=== PATIENT | male | born 1945 | race Caucasian/White ===

== ENCOUNTER 2017-07-16 11:26 | Emergency (ER) | payer OTHER ==
--- NOTE | 2017-07-16 11:42 | EDM.PDOC ---
ED HPI GENERAL MEDICAL PROBLEM - General Chief Complaint: Chest Pain Stated Complaint: [facility] Time Seen by Provider: 07/16/17 11:36 Source of Information: Reports: Patient History Limitations: Reports: No Limitations - History of Present Illness INITIAL COMMENTS - FREE TEXT/NARRATIVE: 72-year-old male sent across from the [place] clinic for evaluation of bilateral upper anterior chest discomfort that he's been experiencing for the last 2 days. Does not feel any more short of breath than normal. He states he always has a bit of a cough and is bringing up a dark yellow sputum first thing in the morning. No hemoptysis. He appreciates increased abdominal distention with belching and passing flatus per rectum last day or so as well. Has been able to eat normally up until today did not eat any breakfast. Denies pain rating to to his back. States that his bowel function is been normal except that he's gone 3 times so far today with no blood noted. Onset: Gradual Onset Date: 07/14/17 Duration: Day(s):, Waxing/Waning (Very mild discomfort) Location: Reports: Chest ( rated as 1 or 2 out of 10.bilateral upper anterior chest. ) Quality: Reports: Ache, Dull. Denies: Burning, Pressure, Same as Previous Episode, Sharp, Stabbing, Throbbing, Other Severity: Mild Improves with: Reports: None, Other (Does not worsen with activity. Perhaps relieved a little bit by burping.) Worsens with: Reports: None Context: Denies: Activity, Exercise, Lifting, Sick Contact, Trauma, Other Associated Symptoms: Reports: cough w sputum (Cosopt a little bit of), Loss of Appetite, Other (Abdominal distention with). Denies: Fever/Chills ( yellowish sputum every day. No worse than normal.), Headaches, Malaise, Nausea/Vomiting ( Has not eaten yet today. Usually has couple pieces of toast in the morning.), Rash, Seizure, Shortness of Breath, Syncope Treatments DRAWER IN JACQUARD LOOM: Reports: Other (see below) (None.) Chest Pain Score (Numeric/FACES): 2 - Related Data Allergies Allergy/AdvReac Type Severity Reaction Status Date / Time No Known Allergies Allergy Verified 07/16/17 11:37 Home Meds: Home Meds Diltiazem [Cardizem CD] 120 mg PO DAILY 07/16/17 [History] Finasteride 5 mg PO DAILY 07/16/17 [History] Hydrochlorothiazide 12.5 mg PO DAILY 07/16/17 [History] Losartan [Cozaar] 100 mg PO DAILY 07/16/17 [History] Omeprazole Magnesium [Prilosec Otc] 20 mg PO DAILY #30 tablet. 07/16/17 [Rx] Rosuvastatin [Crestor] 10 mg PO DAILY 07/16/17 [History] Tamsulosin [Flomax] 0.4 mg PO BEDTIME 07/16/17 [History] glipiZIDE [Glucotrol] 20 mg PO BID 07/16/17 [History] metFORMIN [Glucophage XR] 100 mg PO BID 07/16/17 [History] Past Medical History Respiratory History: Reports: COPD (Mild COPD.) Genitourinary History: Reports: BPH (Slow urinary stream with nocturia 3.) Musculoskeletal History: Reports: Osteoarthritis (Primarily in his hips knees and back.) Social & Family History - Living Situation & Occupation Occupation: Retired ED ROS GENERAL - Review of Systems Review Of Systems: See Below Constitutional: Reports: Decreased Appetite (Today.). Denies: Fever, Chills, Malaise, Weakness, Fatigue, Diaphoresis, Weight Loss HEENT: Reports: No Symptoms Respiratory: Reports: Shortness of Breath, Cough (No worse than normal but has a chronic cough uses a cough drop in the mornings to help loosen up the sputum.) , Sputum (If it is brought up and is usually a darker yellow in color.). Denies : Wheezing (On exertion), Pleuritic Chest Pain Cardiovascular: Reports: Chest Pain (See history of present illness), Blood Pressure Problem, Dyspnea on Exertion. Denies: Claudication, Edema, Lightheadedness, Orthopnea (Chronic hypertension), Palpitations (Chronically) Endocrine: Reports: No Symptoms GI/Abdominal: Reports: Distension (Abdomen is more distended this morning and with a lot of extra burping belching and passage of flatus.). Denies: Abdominal Pain, Anorexia, Black Stool, Bloody Stool, Constipation, Diarrhea, Decreased Appetite, Difficulty Swallowing, Nausea, Stool Incontinence, Vomiting : Reports: No Symptoms Musculoskeletal: Reports: Joint Pain (Knees hips and low back at times occasionally his neck as well) Skin: Reports: No Symptoms Neurological: Reports: No Symptoms ED EXAM, GENERAL - Physical Exam Exam: See Below Exam Limited By: No Limitations General Appearance: Alert, WD/WN, No Apparent Distress Eye Exam: Bilateral Eye: Normal Inspection Throat/Mouth: Normal Inspection, Normal Lips, Normal Oropharynx Head: Atraumatic, Normocephalic Neck: Normal Inspection, Supple, Non-Tender, Full Range of Motion. No: Lymphadenopathy (L), Lymphadenopathy (R) Respiratory/Chest: No Respiratory Distress, Lungs Clear, Normal Breath Sounds, No Accessory Muscle Use, Chest Non-Tender. No: Crackles, Rales, Rhonchi, Wheezing Cardiovascular: Normal Peripheral Pulses, Regular Rate, Rhythm, No Edema, No Gallop, No Murmur, No Rub Peripheral Pulses: 1+: Posterior Tibial (L), Posterior Tibial (R), Dorsalis Pedis (L), Dorsalis Pedis (R) GI/Abdominal: Distended (The abdomen is grossly distended and tympanitic to percussion in all 4 quadrants. It is not painful.), Abnormal Bowel Sounds ( Mildly hyperactive bowel sounds throughout.). No: Guarding, Rigid, Rebound, Tender Back Exam: Normal Inspection, Full Range of Motion. No: CVA Tenderness (L), CVA Tenderness (R) Extremities: Normal Inspection, Normal Range of Motion, Non-Tender, No Pedal Edema Neurological: Oriented, CN II-XII Intact, Normal Cognition, Normal Gait Psychiatric: Normal Affect, Normal Mood Skin Exam: Warm, Dry, Intact, Normal Color, No Rash EKG INTERPRETATION EKG Date: 07/16/17 Time: 11:40 Rhythm: NSR Rate (Beats/Min): 78 [place]: LAD-Left [place] Deviation (-54) P-Wave: Present QRS: Other (Initial poor R-wave progression with late transition. 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 Course - Vital Signs Last Recorded V/S: Last Vital Signs Temp 36.4 C 07/16/17 11:30 Pulse 85 07/16/17 11:30 Resp 18 07/16/17 11:30 BP 172/97 H 07/16/17 11:30 Pulse Ox 98 07/16/17 11:30 - Orders/Labs/Meds Orders: Active Orders 24 hr Category Date Time Status EKG Documentation Completion [RC] STAT Care 07/16/17 11:42 Active Labs: Laboratory Tests 07/16/17 07/16/17 07/16/17 Range/Units 12:01 12:01 12:01 WBC 6.61 (4.23-9.07) K/mm3 RBC 4.64 (4.63-6.08) M/mm3 Hgb 13.8 (13.7-17.5) gm/L Hct 39.4 L (40.1-51.0) % MCV 84.9 (79.0-92.2) fl MCH 29.7 (25.7-32.2) pg MCHC 35.0 (32.2-35.5) g/dl RDW Std Deviation 40.1 (35.1-43.9) fL Plt Count 200 (163-337) K/mm3 MPV 9.1 L (9.4-12.3) fl Neutrophils % (Manual) 63 H (40-60) % Band Neutrophils % 0 (0-10) % Lymphocytes % (Manual) 31 (20-40) % Atypical Lymphs % 0 % Monocytes % (Manual) 3 (2-10) % Eosinophils % (Manual) 3 (0.8-7.0) % Basophils % (Manual) 0 L (0.2-1.2) Platelet Estimate Adequate RBC Morph Comment Normal Sodium 140 (136-145) mEq/L Potassium 3.8 (3.5-5.1) mEq/L Chloride 105 (98-107) mEq/L Carbon Dioxide 22 (21-32) mEq/L Anion Gap 16.8 H (5-15) BUN 20 H (7-18) mg/dL Creatinine 1.3 (0.7-1.3) mg/dL Est Cr Clr Drug Dosing 55.51 mL/min Estimated GFR (MDRD) 54 (>60) mL/min BUN/Creatinine Ratio 15.4 (14-18) Glucose 186 H (83-115) mg/dL Calcium 9.5 (8.5-10.1) mg/dL Total Bilirubin 1.1 H (0.2-1.0) mg/dL AST 19 (15-37) U/L ALT 27 (16-63) U/L Alkaline Phosphatase 45 L (46-116) U/L CK-MB (CK-2) 1.1 (0-3.6) ng/ml Troponin I < 0.017 (0.00-0.056) ng/mL C-Reactive Protein < 0.2 (<1.0) mg/dL NT-Pro-B Natriuret Pep 66 (0-125) pg/mL Total Protein 7.2 (6.4-8.2) g/dl Albumin 3.8 (3.4-5.0) g/dl Globulin 3.4 gm/dL Albumin/Globulin Ratio 1.1 (1-2) Amylase 78 (20-160) U/L - Radiology Interpretation Free Text/Narrative:: 72-year-old male [facility] he presented to the clinic this morning complaining of bilateral upper anterior chest discomfort for the last couple of days. His ECG apparently was abnormal only for GERD him to the ED. He states otherwise he feels pretty good. He states he is no more short of breath than normal. Sputum is production is no worse than normal. Has no chest wall tenderness. Described as a discomfort. Of note his abdomen is distended and grossly intubated percussion in all 4 quadrants and maybe referring some of the pain up into his anterior chest from diaphragmatic irritation. He is burping and belching and passing flatus to get rid of extra gas. The abdomen itself otherwise it feels benign. He's had 3 bowel movements so far today. Chest exam is within normal limits. ECG shows evidence of an old inferior wall myocardial infarction with no acute ischemic changes. He has poor initial R wave progression with late transition. There is a left axis axis deviation of -54. Plan chest x-ray routine labs to be performed including cardiac markers. He is hypertensive at the time of exam. O2 sats are 98% on room air - Re-Assessments/Exams Free Text/Narrative Re-Assessment/Exam: 07/16/17 12:27 chest x-ray reveals old appearing lungs. There is no obvious infiltrates in either lung. Silhouette is within normal limits. The abdomen shows air distending both large and small bowel with no signs of obstruction. There does travel down into the rectal vault. 07/16/17 12:59 Labs reveal a normal white count at 6.61 with a normal differential 63% neutrophils and no bands. Hemoglobin is 13.8 with hematocrit of 39.4. Platelet count is 200,000. Sodium 140 potassium 3.8. Toward 105 bicarbonate 22. Anion gap is mildly elevated at 16.8. BUNs 20. Creatinine is 1.3. Glucose is elevated at 186. Calcium 9.5 bilirubin 1.1 alkaline phosphatase is low at 45. Troponin is less than 0.017. C-reactive protein is less than 0.2. Amylase is 78. Therefore his labs are basically normal. I suspect his anterior chest discomfort it may be referred from his abdominal distention. By history also having increasing problems with GERD as of late. I'm going to suggest that he go on Prilosec 20 mg once daily for at least a month's trial to see if it alleviates some of this discomfort. I'm strongly suspicious that he may have sleep apnea syndrome to present to the ED with such a large amount of air in his small and large bowel that would've accumulated overnight with . difficulty breathing. He doesn't feel distended.. I will suggest to the [place] clinic that they arrange a sleep study for him. 07/16/17 13:56 and mentioned to the patient about pursuing a sleep study but he' s not all that keen at this time as he doesn't think he would be able to tolerate a CPAP mask. I will therefore leave that up to his discretion. Departure - Departure Time of Disposition: 13:36 Disposition: Home, Self-Care 01 Condition: Fair Clinical Impression: Non-cardiac chest pain, Gastroesophageal reflux disease Prescriptions: Omeprazole Magnesium [Prilosec Otc] 20 mg PO DAILY #30 tablet. Instructions: Food Choices for Gastroesophageal Reflux Disease, Adult, Easy-to- Read, Nonspecific Chest Pain, [id number], Gastroesophageal Reflux Disease, Adult, [id number] Referrals: Sanam Russo DO [Primary Care Provider] - Forms: ED Department Discharge Additional Instructions: Evaluation the emergency room today in regards to diffuse upper anterior chest discomfort for the last couple of days. Recommended by the [place] [facility] that you get checked out to make sure that there was no evidence of heart related illness. Therefore complete cardiac workup was completed in the ED and showed no changes to suggest heart related illness at this time. Did identify a large amount of gas distending the small and large bowel in your abdomen and I am concerned that you may be suffering sleep apnea during the night which means you 're struggling to breathe and swallow good deal of air and he would not be aware of this. I would suggest that a sleep study be carried out through the [place] clinic. Thirdly you identified that you're using more Tums and Rolaids as of late to try and control reflux disease. The reflux disease involves the inflammation of the lower part of the food pipe and may refer some of the pain or discomfort up into her anterior chest. I would therefore suggest use of Prilosec medication 20 mg once daily at bedtime for the next month to see if this helps alleviate some of this discomfort. [facility] 2 weeks to see how you're doing. - My Orders Last 24 Hours: My Active Orders 07/16/17 11:42 EKG Documentation Completion [RC] STAT - Assessment/Plan Last 24 Hours: My Active Orders 07/16/17 11:42 EKG Documentation Completion [RC] STAT
--- NOTE | 2017-07-16 12:50 | CR ---
Abdomen: Supine view of the abdomen was obtained. Scattered gas noted within the colon and small bowel. No bowel dilatation is seen with no findings of bowel obstruction. Calcifications are seen within the pelvis compatible with phleboliths. Degenerative change is seen within the spine. Impression: 1. Incidental findings. Diagnostic code #2
--- NOTE | 2017-07-16 12:50 | CR ---
Chest: Frontal view of the chest was obtained. Comparison: No previous study. Heart size is normal. Mild tortuosity of the thoracic aorta is seen. Minimal linear density is noted within the left lung base compatible with small scar or minimal atelectasis. Lungs otherwise are clear. Degenerative change is seen within the lower thoracic spine. Mild scoliosis is noted. Several old healed right-sided rib fractures are seen. Impression: 1. Incidental findings. Nothing acute is seen. Diagnostic code #2
== END 2017-07-16 13:55 | disposition home or self-care (01) ==
LOC: JD.ED 11:26
DX: K21.9 Gastro-esophageal reflux disease without esophagitis (principal); Z79.899 Other long term (current) drug therapy; Z79.84 Long term (current) use of oral hypoglycemic drugs
CPT/HCPCS: 36415; 71010; 71010-26; 74000; 74000-26; 80053; 82150; 82553; 83880; 84484; 85025; 86140; 93005; 93010; 99283-25; 99285-25

== ENCOUNTER 2021-08-30 09:58 | Emergency (ER) | payer OTHER | END 2021-08-30 11:54 | disposition home or self-care (01) | LOC: JD.ED 09:58 | DX: T20.20XA Burn of second degree of head, face, and neck, unspecified site, initial encounter (principal); E78.00 Pure hypercholesterolemia, unspecified; I10 Essential (primary) hypertension; J44.9 Chronic obstructive pulmonary disease, unspecified; N40.0 Benign prostatic hyperplasia without lower urinary tract symptoms; Z79.899 Other long term (current) drug therapy; X19.XXXA Contact with other heat and hot substances, initial encounter; Y99.0 Civilian activity done for income or pay | CPT/HCPCS: 99283 ==

== ENCOUNTER 2023-12-17 19:00 | Inpatient (IN) | payer OTHER ==
[2023-12-17] MEDS ORDERED: Sodium Chloride 0.9% 10 ML Syringe FLUSH PRN (19:34)
[2023-12-17 19:43] LABS: BASOPHILS PERCENT AUTO 0.1 % (0.0-1.0); EOSINOPHILS PERCENT AUTO 0.3 % (0.0-6.0); HEMATOCRIT 39.7 % (42.0-52.0); HEMOGLOBIN 13.5 gm/dl (14.0-18.0); IMMATURE GRAN ABSOLUTE AUTO 0.02 K/mm3 (0.00-0.05); IMMATURE GRAN PERCENT AUTO 0.3 % (0.0-0.4); LYMPHOCYTES ABSOLUTE AUTO 0.3 K/mm3 (1.0-4.8); LYMPHOCYTES PERCENT AUTO 4.4 % (24.0-44.0); MEAN CORPUSCULAR HEMOGLOBIN 29.3 pg (28.0-32.0); MEAN CORPUSCULAR VOLUME 86.1 fl (83.0-99.0); MEAN PLATELET VOLUME 8.8 fl (9.4-12.4); MONOCYTES ABSOLUTE AUTO 0.2 K/mm3 (0.0-0.8); MONOCYTES PERCENT AUTO 2.1 % (0.0-8.0); NEUTROPHILS ABSOLUTE AUTO 7.1 K/mm3 (1.8-7.7); NEUTROPHILS PERCENT AUTO 92.8 % (41.0-71.0); PLATELET COUNT,PLT 196 K/mm3 (150-400); RED BLOOD CELL COUNT 4.61 M/mm3 (4.52-5.90); WHITE BLOOD CELL COUNT,WBC 7.68 K/mm3 (3.9-11.3)
[2023-12-17] MEDS ORDERED: Sodium Chloride 0.9% 1,000 ML IV SCH (20:00)
[2023-12-17 20:01] LABS: ALBUMIN 3.6 g/dl (3.4-5.0); BILIRUBIN TOTAL 1.8 mg/dL (0.2-1.0); C-REACTIVE PROTEIN 0.14 mg/dL (<0.30); EST CRCL DRUG DOSING (CG) 33.95 mL/min; MAGNESIUM 1.3 mg/dL (1.8-2.4); PROTEIN TOTAL,TP 7.1 g/dl (6.4-8.2)
[2023-12-17 20:03] LABS: SLIDE REVIEW ABNORMAL SMEAR
[2023-12-17 20:04] LABS: LACTIC ACID 1.5 mmol/L (0.4-2.0)
[2023-12-17] MEDS ORDERED: Ondansetron 4 MG/2 ML SDV IVPUSH PRN (21:43)
[2023-12-17] MEDS ORDERED: HYDROmorphone 0.5 MG/0.5 ML Syringe IVPUSH PRN (21:44)
[2023-12-17] MEDS: Magnesium Sulfate/Water 2 GM in Premix Bag 1 BAG IV ONE (22:42)
[2023-12-18] MEDS: Sodium Chloride 0.9% 1,000 ML IV SCH ×2 (00:58→10:39)
[2023-12-18 01:17] LABS: APPEARANCE,URINE CLEAR (Clear); BILIRUBIN,URINE NEGATIVE (Negative); COLOR,URINE YELLOW (Yellow); GLUCOSE,URINE NEGATIVE (Negative); KETONES,URINE NEGATIVE (Negative); LEUKOCYTE ESTERASE,URINE NEGATIVE (Negative); NITRITE,URINE NEGATIVE (Negative); OCCULT BLOOD,URINE TRACE-LYSED (Negative); PH,URINE 6.5 (5.0-8.0); PROTEIN,URINE 2+ (Negative); UROBILINOGEN,URINE 0.2 (0.2-1.0)
[2023-12-18 02:04] LABS: BACTERIA,URINE RARE /hpf (FEW); EPITHELIAL CELLS,URINE 0-5 /hpf (0-5); RBC,URINE NOT SEEN /hpf (0-5); WBC,URINE 0-5 /hpf (0-5)
[2023-12-18 02:05] LABS: MUCUS,URINE RARE /hpf (FEW)
[2023-12-18 06:14] LABS: BASOPHILS PERCENT AUTO 0.2 % (0.0-1.0); EOSINOPHILS PERCENT AUTO 0.2 % (0.0-6.0); HEMATOCRIT 37.2 % (42.0-52.0); HEMOGLOBIN 12.3 gm/dl (14.0-18.0); IMMATURE GRAN ABSOLUTE AUTO 0.04 K/mm3 (0.00-0.05); IMMATURE GRAN PERCENT AUTO 0.4 % (0.0-0.4); LYMPHOCYTES ABSOLUTE AUTO 0.7 K/mm3 (1.0-4.8); LYMPHOCYTES PERCENT AUTO 6.2 % (24.0-44.0); MEAN CORPUSCULAR HEMOGLOBIN 28.7 pg (28.0-32.0); MEAN CORPUSCULAR HGB CONC 33.1 g/dl (32.0-36.0); MEAN CORPUSCULAR VOLUME 86.9 fl (83.0-99.0); MEAN PLATELET VOLUME 8.9 fl (9.4-12.4); MONOCYTES ABSOLUTE AUTO 0.6 K/mm3 (0.0-0.8); MONOCYTES PERCENT AUTO 5.2 % (0.0-8.0); NEUTROPHILS ABSOLUTE AUTO 9.4 K/mm3 (1.8-7.7); NEUTROPHILS PERCENT AUTO 87.8 % (41.0-71.0); PLATELET COUNT,PLT 175 K/mm3 (150-400); RED BLOOD CELL COUNT 4.28 M/mm3 (4.52-5.90); WHITE BLOOD CELL COUNT,WBC 10.73 K/mm3 (3.9-11.3)
[2023-12-18 07:08] LABS: A/G RATIO 0.9 (1-2); ALBUMIN 3.1 g/dl (3.4-5.0); ANION GAP 9.6 (5-15); BILIRUBIN TOTAL 2.3 mg/dL (0.2-1.0); BUN/CREATININE RATIO 11.1 (14-18); CALCIUM 9.4 mg/dL (8.5-10.1); CREATININE 1.8 mg/dL (0.7-1.3); EST CRCL DRUG DOSING (CG) 36.6 mL/min; POTASSIUM,K 4.6 mEq/L (3.5-5.1); PROTEIN TOTAL,TP 6.4 g/dl (6.4-8.2)
[2023-12-18] MEDS: Diltiazem 120 MG Cap.CD PO SCH (09:23)
[2023-12-18] MEDS: Pantoprazole 40 MG Tab.CR PO SCH (09:23)
[2023-12-18] MEDS: Famotidine 10 MG Tab PO SCH (09:23)
[2023-12-18] MEDS: Finasteride 5 MG Tab PO SCH (09:23)
[2023-12-18] MEDS: Aspirin 325 MG Tab.EC PO SCH (09:24)
[2023-12-18] MEDS: Insulin Glargine,Human Rec. Analog 100 Units/ML 3 ML Pen SUBCUT SCH (09:24)
[2023-12-18 11:08] LABS: HEMOGLOBIN A1C 8.1 %
[2023-12-18 11:12] LABS: CHOLESTEROL HDL 56 mg/dL (40-59); CHOLESTEROL LDL DIRECT 50 mg/dL (<100); CHOLESTEROL TOTAL 107 mg/dL (<200); TRIGLYCERIDES 37 mg/dL (<150)
[2023-12-18] MEDS: Sodium Chloride 0.9% 10 ML Syringe FLUSH SCH (11:31)
[2023-12-18] MEDS: Gadobenate Dimeglumine 529 MG/ML 20 ML SDV IVPUSH ONE (11:31)
[2023-12-18] MEDS ORDERED: Albuterol/Ipratropium 3.0-0.5 MG/3 ML Neb Soln NEB PRN (12:06)
[2023-12-18 12:28] LABS: HEPATITIS C AB NON-REACTIVE (Non-React)
[2023-12-18] MEDS: Insulin Lispro 100 Unit/ML 3 ML KwikPen SUBCUT SCH ×2 (13:33→13:38)
[2023-12-18] MEDS: Heparin Sodium 5,000 Units/ML Vial SUBCUT SCH (13:38)
[2023-12-18] MEDS: Tamsulosin 0.4 MG Cap.ER PO SCH (20:43)
[2023-12-19 00:50] LABS: AMORPHOUS SEDIMENT,URINE FEW /hpf (NOT SEEN)
[2023-12-19 04:37] LABS: BASOPHILS PERCENT AUTO 0.2 % (0.0-1.0); EOSINOPHILS ABSOLUTE AUTO 0.1 K/mm3 (0.0-0.4); EOSINOPHILS PERCENT AUTO 0.8 % (0.0-6.0); HEMOGLOBIN 10.9 gm/dl (14.0-18.0); IMMATURE GRAN ABSOLUTE AUTO 0.03 K/mm3 (0.00-0.05); IMMATURE GRAN PERCENT AUTO 0.4 % (0.0-0.4); LYMPHOCYTES ABSOLUTE AUTO 0.8 K/mm3 (1.0-4.8); LYMPHOCYTES PERCENT AUTO 8.8 % (24.0-44.0); MEAN CORPUSCULAR HEMOGLOBIN 29.1 pg (28.0-32.0); MEAN PLATELET VOLUME 8.7 fl (9.4-12.4); MONOCYTES ABSOLUTE AUTO 0.6 K/mm3 (0.0-0.8); MONOCYTES PERCENT AUTO 6.8 % (0.0-8.0); NEUTROPHILS ABSOLUTE AUTO 7.1 K/mm3 (1.8-7.7); PLATELET COUNT,PLT 140 K/mm3 (150-400); RED BLOOD CELL COUNT 3.75 M/mm3 (4.52-5.90)
[2023-12-19 05:09] LABS: A/G RATIO 0.9 (1-2); ALBUMIN 2.6 g/dl (3.4-5.0); ANION GAP 11.9 (5-15); BILIRUBIN DIRECT 0.7 mg/dl (0.0-0.2); BILIRUBIN TOTAL 3.2 mg/dL (0.2-1.0); BUN/CREATININE RATIO 10.6 (14-18); CALCIUM 8.3 mg/dL (8.5-10.1); CREATININE 1.8 mg/dL (0.7-1.3); EST CRCL DRUG DOSING (CG) 36.6 mL/min; MAGNESIUM 1.5 mg/dL (1.8-2.4); POTASSIUM,K 3.9 mEq/L (3.5-5.1); PROTEIN TOTAL,TP 5.6 g/dl (6.4-8.2)
[2023-12-19] MEDS ORDERED: Magnesium Sulfate/Water 2 GM in Premix Bag 1 BAG IV SCH (08:30)
[2023-12-19] MEDS: Magnesium Sulfate/Water 2 GM in Premix Bag 1 BAG IV ONE (09:09)
[2023-12-19 09:23] LABS: LACTIC ACID 0.9 mmol/L (0.4-2.0)
[2023-12-19] MEDS: Iopamidol 755 Mg/ML 100 ML Bottle IVPUSH ONE (10:02)
[2023-12-19] MEDS: Sodium Chloride 0.9% 10 ML Syringe FLUSH PRN (10:02)
[2023-12-19] MEDS: Sodium Chloride 0.9% 100 ML IV SCH (10:03)
[2023-12-19] MEDS: Sodium Chloride 0.9% 1,000 ML IV SCH (13:36)
[2023-12-19] MEDS: metroNIDAZOLE/Normal Saline 500 MG in Premix Bag 1 BAG IV SCH (13:37)
[2023-12-19] MEDS: cefTRIAXone 2 GM in Sodium Chloride 0.9% 100 ML IV SCH (14:40)
[2023-12-19] MEDS: Insulin Lispro 100 Unit/ML 3 ML KwikPen SUBCUT SCH (17:49)
[2023-12-20 05:05] LABS: BASOPHILS PERCENT AUTO 0.3 % (0.0-1.0); EOSINOPHILS ABSOLUTE AUTO 0.1 K/mm3 (0.0-0.4); EOSINOPHILS PERCENT AUTO 1.5 % (0.0-6.0); HEMATOCRIT 30.5 % (42.0-52.0); HEMOGLOBIN 10.1 gm/dl (14.0-18.0); IMMATURE GRAN ABSOLUTE AUTO 0.02 K/mm3 (0.00-0.05); IMMATURE GRAN PERCENT AUTO 0.3 % (0.0-0.4); LYMPHOCYTES ABSOLUTE AUTO 0.6 K/mm3 (1.0-4.8); LYMPHOCYTES PERCENT AUTO 8.6 % (24.0-44.0); MEAN CORPUSCULAR HEMOGLOBIN 28.9 pg (28.0-32.0); MEAN CORPUSCULAR HGB CONC 33.1 g/dl (32.0-36.0); MEAN CORPUSCULAR VOLUME 87.1 fl (83.0-99.0); MEAN PLATELET VOLUME 9.4 fl (9.4-12.4); MONOCYTES ABSOLUTE AUTO 0.7 K/mm3 (0.0-0.8); NEUTROPHILS ABSOLUTE AUTO 5.3 K/mm3 (1.8-7.7); NEUTROPHILS PERCENT AUTO 79.3 % (41.0-71.0); PLATELET COUNT,PLT 132 K/mm3 (150-400); WHITE BLOOD CELL COUNT,WBC 6.71 K/mm3 (3.9-11.3)
[2023-12-20 05:44] LABS: A/G RATIO 0.8 (1-2); ALBUMIN 2.5 g/dl (3.4-5.0); ANION GAP 15.1 (5-15); BILIRUBIN TOTAL 1.9 mg/dL (0.2-1.0); BUN/CREATININE RATIO 11.9 (14-18); CREATININE 1.6 mg/dL (0.7-1.3); EST CRCL DRUG DOSING (CG) 41.18 mL/min; MAGNESIUM 1.9 mg/dL (1.8-2.4); POTASSIUM,K 4.1 mEq/L (3.5-5.1); PROTEIN TOTAL,TP 5.8 g/dl (6.4-8.2)
[2023-12-20 13:47] LABS: HEP B SURFACE AG Negative (Negative)
== END 2023-12-20 13:41 | disposition home or self-care (01) | DRG 439 ==
LOC: JD.ED 19:00 → JD.MS 21:41
PROVIDERS: ADMIT Internal Medicine; ATTEND Internal Medicine
DX: K85.30 Drug induced acute pancreatitis without necrosis or infection (principal); I48.92 Unspecified atrial flutter; N17.9 Acute kidney failure, unspecified; E78.00 Pure hypercholesterolemia, unspecified; I10 Essential (primary) hypertension; J44.9 Chronic obstructive pulmonary disease, unspecified; N40.0 Benign prostatic hyperplasia without lower urinary tract symptoms; M19.90 Unspecified osteoarthritis, unspecified site; Z96.659 Presence of unspecified artificial knee joint; I48.91 Unspecified atrial fibrillation; R74.01 Elevation of levels of liver transaminase levels; E80.6 Other disorders of bilirubin metabolism; E11.69 Type 2 diabetes mellitus with other specified complication; K21.9 Gastro-esophageal reflux disease without esophagitis; E83.42 Hypomagnesemia; R93.429 Abnormal radiologic findings on diagnostic imaging of unspecified kidney; K29.80 Duodenitis without bleeding; T38.3X5A Adverse effect of insulin and oral hypoglycemic [antidiabetic] drugs, initial encounter; Z79.899 Other long term (current) drug therapy; Z79.84 Long term (current) use of oral hypoglycemic drugs
CPT/HCPCS: 36415; 74177; 74177-26; 74183; 74183-26; 76705; 76705-26; 80053; 80061; 81001; 82248; 82947; 83036; 83605; 83690; 83735; 85025; 86140; 86803; 87040; 87340; 93005; 93010; 97110-GP; 97161-GP; 99285; A9270-GY; A9577; J0696; J1644; J1815; J1815-GY; J1836; J3475; J3490; J7030; Q9967